=== PATIENT | female | born 1940 | race African-American/Black ===

== ENCOUNTER 2016-07-16 06:17 | Inpatient (IN) ==
[2016-07-14 10:19] LABS: Basophils % 0.7 % (0.0-0.8); Eosinophils # 0.3 10*3/uL (0.0-0.87); Eosinophils % 6.7 % (0.00-10.9); Hematocrit 30.8 VOL% (35.7-47.0); Hemoglobin 9.8 GM/DL (12.0-16.0); Immature Granulocytes % 0.2 %; Immature Granulocytes Absolute 0.01 #; Lymphocytes # 0.8 10*3/uL (1.4-4.0); Lymphocytes % 20.2 % (21.3-54.2); Mean Corpuscular HGB Conc 31.8 GM/DL (32-36); Mean Corpuscular Hemoglobin 29 PG (27-34); Mean Corpuscular Volume 90.1 FL (87-102); Mean Platelet Volume 11.4 FL (9.6-12.0); Monocytes # 0.2 10*3/uL (0.11-0.8); Monocytes % 5.4 % (1.7-12.7); Neutrophils # 2.7 10*3/uL (1.4-7.4); Neutrophils % 66.8 % (38.7-73.9); Platelet Count 157 T/CUMM (130-400); Red Blood Count 3.42 MC/CUMM (3.8-5.5); Red Cell Distribution Width 11.8 % (9.3-17.3); White Blood Count 4.1 T/CUMM (4-12)
[2016-07-14 10:29] LABS: PT Patient Result 10.9 SECS; Partial Thromboplastin Time 25.4 SECS (0-40)
[2016-07-14 10:47] LABS: Albumin 3.9 G/DL (3.4-5.0); Bilirubin,Total 0.4 MG/DL (0.2-1.0); Calcium 9.2 MG/DL (8.5-10.1); Total Protein 6.8 G/DL (6.4-8.3)
[2016-07-14 10:48] LABS: Osmolality,Calculated 301.1 MOS/KG (273-304); Potassium 3.7 MMOL/L (3.5-5.1)
--- NOTE | 2016-07-14 11:10 | EKG Report ---
Stationary ECG Study [facility] Test Date: 07/14/2016 11:08:16 AM Pat Name: GURWINDER DAVIS Department: Room: Gender: F Fish Salter: C[place] 07/16/16 BRANDI : 1940 Requested by: Peewee Dawkins Order Number: [id number] Lyndsay MD: CHRISTOPHER SHELTON Intervals [place] Rate: 59 P: 54 CO: 147 QRS: 42 QRSD: 102 T: 90 QT: 396 QTc: 395 Interpretive Statements SINUS RHYTHM WITH MARKED SINUS ARRHYTHMIA POSSIBLE ANTERIOR MYOCARDIAL INFARCTION, OF INDETERMINATE AGE Electronically Signed On 07-14-16 12:14:32 CDT by CHRISTOPHER SHELTON [email or web address]
--- NOTE | 2016-07-14 12:35 | XRay Report ---
XR chest 2V Indication: Preop respiratory evaluation. Chest 2 views: No comparison. Aorta is slightly tortuous. Heart size and mediastinal contours are otherwise unremarkable. Lungs are clear. Pleural spaces are clear. Impression: No acute cardiopulmonary disease. PROCEDURE INTERPRETED AT [facility] DEPARTMENT OF RADIOLOGY Final Report Signed by: Oscar Kincaid M.D.
[~2016-07-16 06:17] MED LIST: ceFAZolin 2,000 MG in PREMIX 1 EACH IV ONE
--- NOTE | 2016-07-16 06:36 | History and Physical Update ---
History and Physical Update - History and Physical H&P was reviewed, the patient examined and there: are no changes in the patients condition since last H&P was completed.
[2016-07-16] MEDS ORDERED: BUPIVACAINE MPF 0.25% /EPI 30 ML VIAL ONE (06:45)
[2016-07-16] MEDS ORDERED: LACTATED RINGERS 1,000 ML IV SCH (07:00)
[2016-07-16] MEDS ORDERED: PHENYLEPHRINE 1 MG/10 ML SYRINGE IV ONE (07:01)
[2016-07-16] MEDS ORDERED: LIDOCAINE 2% 5 ML VIAL ONE (07:01)
[2016-07-16] MEDS ORDERED: ONDANSETRON 4 MG/2 ML VIAL ONE (07:01)
[2016-07-16] MEDS ORDERED: PROPOFOL 200 MG/20 ML VIAL IV ONE (07:01)
[2016-07-16] MEDS ORDERED: ACETAMINOPHEN 325 MG TABLET PO PRN (10:03)
[2016-07-16] MEDS ORDERED: GLUCAGON 1 MG VIAL IM PRN (10:03)
[2016-07-16] MEDS ORDERED: DEXTROSE 50% 25 GM/50 ML VIAL IV PRN (10:03)
[2016-07-16] MEDS ORDERED: HYDROmorphone 2 MG/1 ML VIAL IV PRN ×2 (10:03→10:39)
[2016-07-16] MEDS ORDERED: SEVOFLURANE 1 UNIT/15 MINUTE INH ONE (10:27)
[2016-07-16] MEDS ORDERED: MIDAZOLAM 2 MG/2 ML VIAL ONE (10:28)
[2016-07-16] MEDS ORDERED: LACTATED RINGERS 1,000 ML IV ONE (10:28)
[2016-07-16] MEDS ORDERED: ACETAMINOPHEN 1,000 MG/100 ML VIAL IV ONE (10:30)
[2016-07-16] MEDS ORDERED: ONDANSETRON 4 MG/2 ML VIAL IV PRN (10:39)
[2016-07-16] MEDS: SODIUM CHLORIDE 0.9% 1,000 ML IV SCH ×2 (12:03→21:00)
--- NOTE | 2016-07-16 12:45 | Anesthesia ---
Anesthesia Post OP - Post Ansesthetic Evaluation Patient seen in post op: Yes Resp: within normal limits CV: within normal limits Mental: within normal limits Temp: within normal limits Mnck-Pm-[id number]: within normal limits Nausea and Vomiting: within normal limits Pain: within normal limits
[2016-07-16] MEDS: INSULIN REGULAR 100 UNIT/ML SUBCUT SCH ×3 (13:18→21:01)
[2016-07-16] MEDS: ceFAZolin 2,000 MG in PREMIX 1 EACH IV SCH ×2 (15:30→23:29)
[2016-07-16 16:32] LABS: Hemoglobin 9.1 GM/DL (12.0-16.0)
--- NOTE | 2016-07-16 17:53 | Event Note ---
07/16/2016. Patient is postop left mastectomy moderate HODA drainage and hematocrit is stable at 30. Vital signs are stable and she is alert at this time. Patient stable postop.
--- NOTE | 2016-07-16 18:01 | Operative Note ---
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 Postoperative diagnosis: Same Procedure: Left modified radical mastectomy with left axillary lymph node dissection. Surgeon Dr. Dawkins Wire Rope Sling Maker Judith Rees, SAMPLE CLERK ACNP Anesthesia General tracheal. Brief history: 76-year-old -[place] female who has cancer of the left breast triple negative by core needle biopsy. She also has a masses near the tail of the axilla that was biopsied and said his metastatic cancer to the lymph node. At this point Dr. elliott seen her and he would like for us to go ahead and see if we could do the surgery behind her since he was hoping to do a lesser amount of chemotherapy on the patient once the mass was removed. We discussed this with the family brought her in at this time for surgery. Procedure: With patient supine position prepped and draped in a sterile fashion timeout and antibiotics completed approaches area the left breast. At that point time we carefully bay out a elliptical incision about the areola in a transverse fashion that would also encompass the mass at the 2 o'clock position. We then made an incision through the skin subtenons tissue in the superior part of the breast dissected through the subtenons tissue and then begin to create a superior flap by going through Alena's fascia care and all the way up to the pectoralis major muscle at the level of the clavicle. We then carried this dissection a little bit medial to the sternal area. With that completed then we created our posterior flap going through skin subtenons tissue and dissected through Alena's fascia down to the level of the rectus sheath. We then went medial to create the medial margin of the breast kidney down along the sternal area edge. We then created a lateral flap going through the skin subtenons tissue and the Alena's fascia down to the level of the latissimus dorsi muscle. Once we had that flaps created then we took the breast off the chest wall by incising the fascial top of the muscle finding no tissue attached to the muscle at all. Everything was free and we were able to bring up breast up and out. We rolled the breast laterally until we can see the lateral edge of the pectoralis major muscle dissected along it until we can define the lateral edge of the pectoralis minor muscle. We carefully preserved blood supply to both these muscles dissected into the axilla. With careful dissection we identified the vein and begin take the breast tissue down inferior to the both vein at this time dividing any large vessels or branches. We identified the long thoracic and thoracodorsal nerves and begin dissected tissue between the toes nerves out carefully. Once we had the exit axilla pulled down we could see the second mass in this area that was probably at the very superior part of the breast tissue are at the very proximal part of the tail of the axilla. There were some smaller lymph nodes in the axilla we carefully dissected all these things free until we had the breast just it laterally. We went along the latissimus dorsi muscle taking the breast tissue off the chest wall. Once that was clear will use light cauterization control bleeding washed with sterile water. With a wound looking clear and clean we made 2 separate stab wounds laid 2 #[address] [place] drains in place we then used fibrin glue into the chest wall area that R drains in place. We next began to close subtenons tissue with interrupted 3-0 Vicryl suture to close the skin with skin clips secured the drain and 3-0 nylon. Dressings were applied and the patient taken to recovery room. Estimated blood loss 50 cc Sponge count correct 2 drains 2 #10 [place] Complications none Condition stable satisfactory Anesthesia: NOAH Surgeon / Physician: Peewee Dawkins Wire Rope Sling Maker: Judith Rees Estimated blood loss: other (60 cc) Specimens: other (Left breast and axilla) Condition: stable Disposition: floor Results - Labs CBC & BMP: 07/16/16 16:14 07/14/16 10:11 Discharge Plan - Discharge Medications No Action Isosorbide Mononitrate [Imdur] 30 mg PO DAILY glipiZIDE [Glipizide] 5 mg PO DAILY W/BREAKFAST Meloxicam 15 mg PO DAILY Atorvastatin [Lipitor] 40 mg PO DAILY Amlodipine Besylate 10 mg PO DAILY Allopurinol 100 mg PO DAILY Lisinopril/Hydrochlorothiazide [Lisinopril-Hctz 20-25 mg Tab] 2 each PO DAILY - Follow Up or Referral - Forms/Instructions
[2016-07-17 03:36] LABS: Basophils % 0.5 % (0.0-0.8); Eosinophils # 0.2 10*3/uL (0.0-0.87); Eosinophils % 2.5 % (0.00-10.9); Hematocrit 26.9 VOL% (35.7-47.0); Hemoglobin 8.6 GM/DL (12.0-16.0); Immature Granulocytes % 0.3 %; Immature Granulocytes Absolute 0.02 #; Lymphocytes # 1.3 10*3/uL (1.4-4.0); Lymphocytes % 19.3 % (21.3-54.2); Mean Corpuscular Hemoglobin 29 PG (27-34); Mean Corpuscular Volume 90.9 FL (87-102); Mean Platelet Volume 11.9 FL (9.6-12.0); Monocytes # 0.4 10*3/uL (0.11-0.8); Monocytes % 6.6 % (1.7-12.7); Neutrophils # 4.6 10*3/uL (1.4-7.4); Neutrophils % 70.8 % (38.7-73.9); Platelet Count 128 T/CUMM (130-400); Red Blood Count 2.96 MC/CUMM (3.8-5.5); Red Cell Distribution Width 11.9 % (9.3-17.3); White Blood Count 6.5 T/CUMM (4-12)
[2016-07-17 04:10] LABS: Calcium 8.3 MG/DL (8.5-10.1); Osmolality,Calculated 292.8 MOS/KG (273-304)
[2016-07-17] MEDS: SODIUM CHLORIDE 0.9% 1,000 ML IV SCH (07:21)
[2016-07-17] MEDS: ENOXAPARIN 40 MG/0.4 ML SYRINGE SUBCUT SCH (09:51)
[2016-07-17] MEDS: amLODIPine 10 MG TABLET PO SCH (09:52)
[2016-07-17] MEDS: ATORVASTATIN 40 MG TABLET PO SCH (09:52)
[2016-07-17] MEDS: MELOXICAM 7.5 MG TABLET PO SCH (09:52)
[2016-07-17] MEDS: LISINOPRIL/HCTZ 20-25 MG TABLET PO SCH (09:52)
[2016-07-17] MEDS: ALLOPURINOL 100 MG TABLET PO SCH (09:52)
[2016-07-17] MEDS: PANTOPRAZOLE 40 MG TABLET PO SCH (09:52)
[2016-07-17] MEDS: ISOSORBIDE MONONITRATE 30 MG TABLET PO SCH (09:53)
[2016-07-17] MEDS: glipiZIDE 5 MG TABLET PO SCH (09:53)
[2016-07-17] MEDS: ceFAZolin 2,000 MG in PREMIX 1 EACH IV SCH ×2 (09:53→20:33)
[2016-07-17] MEDS: INSULIN REGULAR 100 UNIT/ML SUBCUT SCH ×4 (09:54→20:38)
--- NOTE | 2016-07-17 11:59 | General Surgery Progress Note ---
Assessment and Plan - Time spent with patient Time spent with patient: Less than 30 minutes (1) Carcinoma of left breast metastatic to axillary lymph node Status: Acute Assessment and plan: 07/17/16 Stable post op left MRM with axillary dissection. We'll plan to have her increase activity today and arrange for Home Health to pick her up to help with wound care and drain management. If she's doing well she could be discharged home tomorrow. Current Visit: Yes Subjective Patient reports: Present: other (Patient complains of minimal post op pain ' mainly when I move my arm a lot.' ) Exam - Constitutional Vitals: Period Temp Pulse Resp BP Sys/Campbell Pulse Ox Last 24 Hr 97.2 F-98.9 F 70-83 16-20 134-161/54-77 93-100 General appearance: no acute distress, over weight, other (She is awake, alert, and cooperative; able to move left arm to command with greater than 90 degree active range of motion. ) - Respiratory Respiratory exam: Absent: rales, rhonchi, wheezes - Cardiovascular Cardiovascular exam: Present: RRR - Breasts Breasts: other (Left chest wall incision is clean and has no active bleeding present. JPs in place-serous output, minimal amount. No unusual swelling or bruising, no tenderness. ) Results - Labs CBC & BMP: 07/17/16 02:46 07/17/16 02:46 Lab Results: I have reviewed the past 24 hour labs (Labs stable.)
--- NOTE | 2016-07-17 12:09 | Discharge Summary ---
Hospital Course - Hospital Course Hospital Course: Discharge summary-This 76 year old lady was admitted on 07/16/16 for elective left modified radical mastectomy with axillary dissection after she was found to have a large left breast mass with biopsy proven metastatic disease to a left tail of Garcia lymph node. The pathology report was positive for triple negative tumor, and it was felt that she would best be served by MRM, with hopes for more direct chemotherapy once we had achieved surgical control. She was taken to the OR on July 16, 2016, where an uncomplicated left modified radical mastectomy was performed. The largest area of tumor was initially seen by pathology, with the possible second tumor also identified on gross evaluation but no further intraop studies were performed. Post op, she has done very well, with a little low hematocrit that has remained stable overnight and is now 26.8. She is not short of breath, is able to ambulate about the room with a walker, and is having very minimal post op pain. Her HODA drains have small serous output present but with such a large amount of redundant tissue and skin pocket, we do not want to risk seroma, so we will plan to leave both these in place. She is tolerating a regular diet and has good family support. We have worked with geriatric social work professor to establish Home Health to help manage her wound care and drains. We will plan for discharge home to the care of her family and Home health on July 18, 2016. She is to resume all her prior home medications and treatments, including wound care protocols, should continue as per current wound care orders for this hospital stay. We will also leave a prescription for [place], 5/325mg, #20, should she have a need for narcotic pain relief, and plan to see her again in our office in 7 to 10 days for consideration of drain removal. - Time spent with patient Time with patient DS: Less than 30 minutes Diagnosis - Discharge Diagnosis (1) Carcinoma of left breast metastatic to axillary lymph node Status: Acute Specialty Discharge - Follow Up or Referrals Follow up with: Peewee Dawkins MD [Physician] - (Call our office on Wednesday and schedule an appointment to see Dr Dawkins or Judith in 7 to 10 days) Discharge Plan - Discharge Data Disposition: Home Health Service Condition at Discharge: Stable Discharge Diet: diabetic diet Activity: increase activity as tolerated, other (Use left arm; postmastectomy exercises ) Hygiene: may shower Weight Bearing at Discharge: full weight bearing Driving: not until seen by doctor Contact your physician if you experience:: fever over 101, Redness or swelling, Nausea/Vomiting, Shortness of breath, Bleeding, pain uncontrolled by pain medications Wound / Dressing Care Instructions: Please copy current wound care orders from the patient's chart and send these to Home Health with the orders. Please have a copy also sent with the patient's discharge packet. - Discharge Medications New HYDROcodone/ACETAMIN 5-325 [Hanston 5-325] 1 tablet PO Q6H #20 tablet Continue Isosorbide Mononitrate [Imdur] 30 mg PO DAILY glipiZIDE [Glipizide] 5 mg PO DAILY W/BREAKFAST Meloxicam 15 mg PO DAILY Atorvastatin [Lipitor] 40 mg PO DAILY Amlodipine Besylate 10 mg PO DAILY Allopurinol 100 mg PO DAILY Lisinopril/Hydrochlorothiazide [Lisinopril-Hctz 20-25 mg Tab] 2 each PO DAILY - Follow Up or Referral - Forms/Instructions Exam - Constitutional Vitals: Period Temp Pulse Resp BP Sys/Campbell Pulse Ox Last 24 Hr 97.2 F-98.9 F 70-83 16-20 134-161/54-74 93-100 Discharge Results Labs on day of discharge: Labs from last 24 hours 07/17/16 07/17/16 07/17/16 11:29 07:44 02:46 WBC RBC Hgb Hct MCV MCH MCHC RDW Plt Count MPV Neut % (Auto) Lymph % (Auto) [place] % (Auto) Eos % (Auto) Baso % (Auto) Neut # (Auto) Lymph # (Auto) [place] # (Auto) Eos # (Auto) Baso # (Auto) Immature Gran % Nucleated RBC % Immature Gran # Nucleated RBCs # Sodium 144 Potassium 4.0 Chloride 109 H Carbon Dioxide 25 Anion Gap 14.0 BUN 30 H Creatinine 1.20 H GFR Calculation 58 BUN/Creatinine Ratio 25.00 H Glucose 125 H POC Glucose 167 H 136 H Calculated Osmolality 292.8 Calcium 8.3 L 07/17/16 07/16/16 07/16/16 02:46 19:44 16:14 WBC 6.5 D RBC 2.96 L Hgb 8.6 L 9.1 L Hct 26.9 L 29.0 L MCV 90.9 MCH 29 MCHC 32.0 RDW 11.9 Plt Count 128 L MPV 11.9 Neut % (Auto) 70.8 Lymph % (Auto) 19.3 L [place] % (Auto) 6.6 Eos % (Auto) 2.5 Baso % (Auto) 0.5 Neut # (Auto) 4.6 Lymph # (Auto) 1.3 L [place] # (Auto) 0.4 Eos # (Auto) 0.2 Baso # (Auto) 0.0 Immature Gran % 0.3 Nucleated RBC % 0.0 Immature Gran # 0.02 Nucleated RBCs # 0.00 Sodium Potassium Chloride Carbon Dioxide Anion Gap BUN Creatinine GFR Calculation BUN/Creatinine Ratio Glucose POC Glucose 197 H Calculated Osmolality Calcium 07/16/16 15:39 WBC RBC Hgb Hct MCV MCH MCHC RDW Plt Count MPV Neut % (Auto) Lymph % (Auto) [place] % (Auto) Eos % (Auto) Baso % (Auto) Neut # (Auto) Lymph # (Auto) [place] # (Auto) Eos # (Auto) Baso # (Auto) Immature Gran % Nucleated RBC % Immature Gran # Nucleated RBCs # Sodium Potassium Chloride Carbon Dioxide Anion Gap BUN Creatinine GFR Calculation BUN/Creatinine Ratio Glucose POC Glucose 230 H Calculated Osmolality Calcium DS: Provider Date of admission: 07/16/16 10:03 Primary care physician: Aileen Lombardo NP Attending physician on admission: Peewee Dawkins MD Consults: 07/16/16 10:11 Consult to Case Mgmt/Social Srvs [CONS] Routine Reason for Case Mgmt/Social Srvs: Discharge Planning Consult Comment: home health to help wound care and drains 07/16/16 11:58 Consult to Pastoral Services [CONS] Routine Comment: Pastoral Screen: Request Portable Grinding Machine Operator Visit Pastoral Screen Source of Request: Family 07/16/16 12:07 Consult to Pharmacy [CONS] Routine Reason for Pharmacy Consult: Adjust Meds Renal Funct Discharging clinician: Judith Rees CNP, R
[2016-07-17] MEDS: BISACODYL 5 MG TABLET PO PRN (20:37)
[2016-07-18] MEDS: SODIUM CHLORIDE 0.9% 1,000 ML IV SCH ×2 (05:22→05:31)
[2016-07-18] MEDS: BISACODYL 5 MG TABLET PO PRN (05:26)
[2016-07-18] MEDS: ceFAZolin 2,000 MG in PREMIX 1 EACH IV SCH ×2 (05:28→11:59)
[2016-07-18] MEDS: glipiZIDE 5 MG TABLET PO SCH (10:18)
[2016-07-18] MEDS: MELOXICAM 7.5 MG TABLET PO SCH (10:18)
[2016-07-18] MEDS: INSULIN REGULAR 100 UNIT/ML SUBCUT SCH ×2 (10:18→11:56)
[2016-07-18] MEDS: LISINOPRIL/HCTZ 20-25 MG TABLET PO SCH (10:19)
[2016-07-18] MEDS: ISOSORBIDE MONONITRATE 30 MG TABLET PO SCH (10:19)
[2016-07-18] MEDS: amLODIPine 10 MG TABLET PO SCH (10:19)
[2016-07-18] MEDS: ATORVASTATIN 40 MG TABLET PO SCH (10:20)
[2016-07-18] MEDS: PANTOPRAZOLE 40 MG TABLET PO SCH (10:20)
[2016-07-18] MEDS: ENOXAPARIN 40 MG/0.4 ML SYRINGE SUBCUT SCH (10:21)
--- NOTE | 2016-07-18 11:39 | Discharge Summary ---
Hospital Course - Hospital Course Hospital Course: Status post left mastectomy. Doing well. She set for discharge this morning. Incision looks good. HODA drain with minimal serous output. Will keep the HODA drain. She'll follow-up with Dr. Dawkins next week. Prescriptions of been written by Judith Rees Specialty Discharge - Follow Up or Referrals Follow up with: Peewee Dawkins MD [Physician] - (Call our office on Wednesday and schedule an appointment to see Dr Dawkins or Judith in 7 to 10 days) Discharge Plan - Discharge Data Disposition: Home Health Service - Discharge Medications New HYDROcodone/ACETAMIN 5-325 [[place]dermott 5-325] 1 tablet PO Q6H #20 tablet Continue Isosorbide Mononitrate [Imdur] 30 mg PO DAILY glipiZIDE [Glipizide] 5 mg PO DAILY W/BREAKFAST Meloxicam 15 mg PO DAILY Atorvastatin [Lipitor] 40 mg PO DAILY Amlodipine Besylate 10 mg PO DAILY Allopurinol 100 mg PO DAILY Lisinopril/Hydrochlorothiazide [Lisinopril-Hctz 20-25 mg Tab] 2 each PO DAILY - Follow Up or Referral Follow Up: Peewee Dawkins MD [Physician] - (Call our office on Wednesday and schedule an appointment to see Dr Dawkins or Judith in 7 to 10 days) - Forms/Instructions Exam - Constitutional Vitals: Period Temp Pulse Resp BP Sys/Campbell Pulse Ox Last 24 Hr 98.7 F-99.8 F 78-81 18-20 115-145/55-75 96-97 Discharge Results Labs on day of discharge: Labs from last 24 hours 07/17/16 07/17/16 20:35 15:08 POC Glucose 136 H 72 L DS: Provider Date of admission: 07/16/16 10:03 Primary care physician: Aileen Lombardo NP Attending physician on admission: Peewee Dawkins MD Consults: 07/16/16 10:11 Consult to Case Mgmt/Social Srvs [CONS] Routine Reason for Case Mgmt/Social Srvs: Discharge Planning Consult Comment: home health to help wound care and drains 07/16/16 11:58 Consult to Pastoral Services [CONS] Routine Comment: Pastoral Screen: Request Access Coordinator Visit Pastoral Screen Source of Request: Family 07/16/16 12:07 Consult to Pharmacy [CONS] Routine Reason for Pharmacy Consult: Adjust Meds Renal Funct Discharging clinician: Rickey Dobbins MD
[2016-07-18] MEDS: ALLOPURINOL 100 MG TABLET PO SCH (11:56)
[2016-07-18 17:15] VITALS: BP 154/76
--- NOTE | 2016-07-21 13:19 | Pathology Report from [facility] ---
ACCESSION # : [id number] PATIENT NAME : Gurwinder Davis ORDERING DR : KARLA PAZ MD CLINICAL HX: LT breast CA, LT axillary adenopathy POST-OP DX: Same SPECIMEN INFO: LT breast tissue GROSS DESCRIPTION: Received fresh labeled "GURWINDER DAVIS" is a left breast modified radical mastectomy measuring 25.5 x 15.0 x 5.0 cm with an overlying ellipse of brown skin measuring 20.0 x 8.0 cm. The specimen is received previously inked with the superior margin inked red, the inferior blue, the medial yellow, the lateral orange, and the deep black. Sectioning reveals a lobulated pink julian tumor mass measuring 3.2 x 3.0 cm which is situated at the 3: 00 position and comes to within 2.0 cm of the deep margin. Just adjacent to the primary mass is a julian nodule measuring 0.9 x 0.4 cm. A portion of axillary tissue is attached to the breast measuring 12.0 x 8.7 cm with lymph nodes submitted following fixation. Sections submitted A-Nipple and skin, B- Account Support Specialist deep margin, C&D-Primary mass, E-2nd smaller nodule, F&G-Lymph nodes. DIAGNOSIS FOR GURWINDER DAVIS: LEFT BREAST, MODIFIED RADICAL MASTECTOMY WITH AXILLARY NODES (Intact, 25.5 x 15.0 cm): TUMOR TYPE: Invasive ductal carcinoma. TUMOR SITE: LOQ TUMOR SIZE: 3.2 mm. CAREN GRADE III (tubules = 3, pleomorphism = 3, mitoses = 15 MF/ 10 HPF) TUMOR MARGINS: Margins uninvolved by carcinoma, with nearest (deep) margin = 20 mm. FOCALITY: Unifocal (adjacent small nodule is fibrous tissue only). DCIS: Absent. LYMPH- VASCULAR INVASION: Present. SKIN INVOLVEMENT: Absent. LYMPH NODES: Total lymph nodes present (non sentinel): 10; Total sentinel nodes: 0. Lymph nodes with macrometastases (>2 mm) =4 ; micrometastases (>0.2 mm to 2 mm) : 0; isolated tumor cells (<0.2 mm): 0. Extranodal extension: present. AJCC PATHOLOGIC STAGE IIIA(pT2pN2). SERVICE DATE: 07/16/2016 REPORT DATE: 07/17/2016 PATHOLOGIST: Taty Brink
== END 2016-07-18 15:10 | disposition home health service (06) | DRG 582 ==
LOC: N.OR 06:17 → N.SDSINP 06:18 → N.2E 10:03
PROVIDERS: ADMIT Specialist; ATTEND Specialist

== ENCOUNTER 2017-08-20 14:45 | Inpatient (IN) ==
[2017-08-20] MEDS ORDERED: ONDANSETRON 4 MG/2 ML VIAL IV STA (15:06)
[2017-08-20] MEDS ORDERED: SODIUM CHLORIDE 0.9% 500 ML IV STA (15:06)
[2017-08-20] MEDS ORDERED: PANTOPRAZOLE 40 MG VIAL IV STA (15:06)
[2017-08-20 16:06] LABS: Basophils % 0.1 % (0.0-0.8); Immature Granulocytes % 5.7 %; Lymphocytes # 0.5 10*3/uL (1.4-4.0); Lymphocytes % 7.2 % (21.3-54.2); Mean Corpuscular HGB Conc 31.3 GM/DL (32-36); Mean Corpuscular Hemoglobin 30 PG (27-34); Mean Corpuscular Volume 94.2 FL (87-102); Mean Platelet Volume 11.3 FL (9.6-12.0); Monocytes # 0.2 10*3/uL (0.11-0.8); Monocytes % 3.3 % (1.7-12.7); NRBC # 0.06 10*3/uL; Neutrophils # 5.8 10*3/uL (1.4-7.4); Neutrophils % 83.7 % (38.7-73.9); Platelet Count 121 T/CUMM (130-400); Red Cell Distribution Width 14.7 % (9.3-17.3)
[2017-08-20 16:10] LABS: Hematocrit 17.9 VOL% (35.7-47.0); Hemoglobin 5.6 GM/DL (12.0-16.0)
[2017-08-20 16:15] LABS: INR 1.1; PT Patient Result 11.6 SECS; Partial Thromboplastin Time < 21.0 SECS (0-40)
[2017-08-20 16:38] LABS: Band Neutrophils 3 % (0-10); Lymphocytes 10 % (20-55); Platelet Estimate Adequate; Segmented Neutrophils 84 % (50-85); Total Cells Counted 100
[2017-08-20 16:39] LABS: Albumin 2.7 G/DL (3.4-5.0); Bilirubin,Total 0.4 MG/DL (0.2-1.0); Calcium 8.1 MG/DL (8.5-10.1); Hypochromasia 1+; Macrocytosis Slight; Osmolality,Calculated 307.1 MOS/KG (273-304); Polychromasia Slight; Potassium 3.8 MMOL/L (3.5-5.1); Total Protein 5.2 G/DL (6.4-8.3)
[2017-08-20] MEDS ORDERED: ONDANSETRON 4 MG/2 ML VIAL IV PRN (17:31)
[2017-08-20] MEDS ORDERED: SODIUM CHLORIDE 0.9% 1,000 ML IV PRN (17:37)
[2017-08-20] MEDS ORDERED: hydrALAZINE 20 MG/1 ML VIAL IV PRN (19:27)
[2017-08-20] MEDS: SODIUM CHLORIDE 0.9% 1,000 ML IV SCH (19:59)
[2017-08-20] MEDS: LISINOPRIL/HCTZ 20-25 MG TABLET PO SCH (22:04)
[2017-08-20] MEDS: ATORVASTATIN 40 MG TABLET PO SCH (22:04)
[2017-08-20] MEDS: DEXAMETHASONE 4 MG TABLET PO SCH (22:04)
[2017-08-20] MEDS ORDERED: ACETAMINOPHEN 325 MG TABLET PO PRN (23:52)
[2017-08-21 06:39] LABS: Hemoglobin 7.5 GM/DL (12.0-16.0)
[2017-08-21 06:41] LABS: Basophils % 0.2 % (0.0-0.8); Hematocrit 22.8 VOL% (35.7-47.0); Hemoglobin 7.4 GM/DL (12.0-16.0); Immature Granulocytes % 5.7 %; Immature Granulocytes Absolute 0.35 #; Lymphocytes # 0.3 10*3/uL (1.4-4.0); Mean Corpuscular HGB Conc 32.5 GM/DL (32-36); Mean Corpuscular Hemoglobin 28 PG (27-34); Mean Corpuscular Volume 86.4 FL (87-102); Monocytes # 0.1 10*3/uL (0.11-0.8); Monocytes % 2.3 % (1.7-12.7); NRBC # 0.05 10*3/uL; Neutrophils # 5.4 10*3/uL (1.4-7.4); Neutrophils % 86.8 % (38.7-73.9); Platelet Count 107 T/CUMM (130-400); Red Blood Count 2.64 MC/CUMM (3.8-5.5); Red Cell Distribution Width 17.2 % (9.3-17.3); White Blood Count 6.2 T/CUMM (4-12)
[2017-08-21 07:04] LABS: Calcium 8.5 MG/DL (8.5-10.1); Osmolality,Calculated 309.8 MOS/KG (273-304); Potassium 4.3 MMOL/L (3.5-5.1)
[2017-08-21 07:41] LABS: Band Neutrophils 4 % (0-10); Hypochromasia 1+; Lymphocytes 3 % (20-55); Metamyelocytes 1 %; Microcytosis 1+; Nucleated Red Blood Cells 1 (0-5); Ovalocytes Slight; Polychromasia Slight; Segmented Neutrophils 90 % (50-85); Total Cells Counted 100
[2017-08-21 07:42] LABS: Platelet Estimate Decreased
[2017-08-21] MEDS ORDERED: glipiZIDE 5 MG TABLET PO SCH (08:00)
[2017-08-21] MEDS ORDERED: GLUCAGON 1 MG VIAL IM PRN (08:34)
[2017-08-21] MEDS ORDERED: DEXTROSE 50% 25 GM/50 ML VIAL IV PRN (08:34)
[2017-08-21] MEDS ORDERED: MELOXICAM 7.5 MG TABLET PO SCH (09:00)
[2017-08-21] MEDS: PANTOPRAZOLE 40 MG VIAL IV SCH (09:07)
[2017-08-21] MEDS: LISINOPRIL/HCTZ 20-25 MG TABLET PO SCH ×2 (09:10→20:50)
[2017-08-21] MEDS: ISOSORBIDE MONONITRATE 30 MG TABLET PO SCH (09:10)
[2017-08-21] MEDS: amLODIPine 10 MG TABLET PO SCH (09:10)
[2017-08-21] MEDS: ALLOPURINOL 100 MG TABLET PO SCH (09:10)
[2017-08-21] MEDS: SODIUM CHLORIDE 0.9% 1,000 ML IV SCH (16:53)
[2017-08-21] MEDS: glipiZIDE 5 MG TABLET PO SCH (16:53)
[2017-08-21 18:08] LABS: Hematocrit 28.8 VOL% (35.7-47.0); Hemoglobin 9.3 GM/DL (12.0-16.0)
[2017-08-21] MEDS: ATORVASTATIN 40 MG TABLET PO SCH (20:50)
[2017-08-21] MEDS: DEXAMETHASONE 4 MG TABLET PO SCH (20:51)
[2017-08-22 01:24] LABS: Basophils % 0.1 % (0.0-0.8); Eosinophils % 0.1 % (0.00-10.9); Hematocrit 28.9 VOL% (35.7-47.0); Hemoglobin 9.5 GM/DL (12.0-16.0); Immature Granulocytes % 4.5 %; Immature Granulocytes Absolute 0.37 #; Lymphocytes # 0.3 10*3/uL (1.4-4.0); Lymphocytes % 4.1 % (21.3-54.2); Mean Corpuscular HGB Conc 32.9 GM/DL (32-36); Mean Corpuscular Hemoglobin 28 PG (27-34); Mean Corpuscular Volume 85.5 FL (87-102); Monocytes # 0.3 10*3/uL (0.11-0.8); Monocytes % 3.5 % (1.7-12.7); NRBC # 0.08 10*3/uL; Neutrophils # 7.2 10*3/uL (1.4-7.4); Neutrophils % 87.7 % (38.7-73.9); Platelet Count 105 T/CUMM (130-400); Red Blood Count 3.38 MC/CUMM (3.8-5.5); Red Cell Distribution Width 18.4 % (9.3-17.3); White Blood Count 8.3 T/CUMM (4-12)
[2017-08-22 01:50] LABS: Calcium 8.6 MG/DL (8.5-10.1); Osmolality,Calculated 291.1 MOS/KG (273-304); Potassium 3.8 MMOL/L (3.5-5.1)
[2017-08-22 02:23] LABS: Band Neutrophils 23 % (0-10); Lymphocytes 3 % (20-55); Nucleated Red Blood Cells 1 (0-5); Segmented Neutrophils 69 % (50-85); Total Cells Counted 100
[2017-08-22 02:24] LABS: Anisocytosis 2+; Poikilocytosis 1+; Polychromasia 1+
[2017-08-22] MEDS: glipiZIDE 5 MG TABLET PO SCH (08:34)
[2017-08-22] MEDS: LISINOPRIL/HCTZ 20-25 MG TABLET PO SCH ×2 (08:34→21:16)
[2017-08-22] MEDS: amLODIPine 10 MG TABLET PO SCH (08:34)
[2017-08-22] MEDS: ALLOPURINOL 100 MG TABLET PO SCH (08:35)
[2017-08-22] MEDS: PANTOPRAZOLE 40 MG VIAL IV SCH (08:35)
[2017-08-22] MEDS: ISOSORBIDE MONONITRATE 30 MG TABLET PO SCH (08:36)
[2017-08-22] MEDS: SODIUM CHLORIDE 0.9% 1,000 ML IV SCH ×2 (08:37→21:16)
[2017-08-22] MEDS: cefTRIAXone 1,000 MG in SYRINGE 1 EACH IV SCH (11:25)
[2017-08-22 12:13] LABS: Hematocrit 30.1 VOL% (35.7-47.0); Hemoglobin 9.9 GM/DL (12.0-16.0)
[2017-08-22] MEDS ORDERED: glipiZIDE 5 MG TABLET PO SCH (16:30)
[2017-08-22 18:15] LABS: Hematocrit 28.2 VOL% (35.7-47.0); Hemoglobin 9.5 GM/DL (12.0-16.0)
[2017-08-22] MEDS: DEXAMETHASONE 4 MG TABLET PO SCH (21:16)
[2017-08-22] MEDS: ATORVASTATIN 40 MG TABLET PO SCH (21:16)
[2017-08-23 05:36] LABS: Basophils % 0.2 % (0.0-0.8); Hematocrit 27.8 VOL% (35.7-47.0); Hemoglobin 9.2 GM/DL (12.0-16.0); Immature Granulocytes % 2.6 %; Immature Granulocytes Absolute 0.16 #; Lymphocytes # 0.3 10*3/uL (1.4-4.0); Lymphocytes % 4.5 % (21.3-54.2); Mean Corpuscular HGB Conc 33.1 GM/DL (32-36); Mean Corpuscular Hemoglobin 28 PG (27-34); Mean Platelet Volume 11.8 FL (9.6-12.0); Monocytes # 0.1 10*3/uL (0.11-0.8); Monocytes % 1.8 % (1.7-12.7); Neutrophils # 5.7 10*3/uL (1.4-7.4); Neutrophils % 90.9 % (38.7-73.9); Platelet Count 101 T/CUMM (130-400); Red Blood Count 3.35 MC/CUMM (3.8-5.5); Red Cell Distribution Width 18.5 % (9.3-17.3); White Blood Count 6.2 T/CUMM (4-12)
[2017-08-23 06:03] LABS: Calcium 8.5 MG/DL (8.5-10.1)
[2017-08-23 06:30] LABS: Band Neutrophils 1 % (0-10); Hypochromasia 1+; Lymphocytes 2 % (20-55); Macrocytosis 1+; Platelet Estimate Decreased; Polychromasia Slight; Segmented Neutrophils 97 % (50-85); Total Cells Counted 100
[2017-08-23] MEDS ORDERED: BUPIVACAINE 0.5% /EPI 10 ML VIAL ONE (07:10)
[2017-08-23] MEDS ORDERED: BUPIVACAINE 0.5% 50 ML VIAL ONE (07:29)
[2017-08-23] MEDS ORDERED: glipiZIDE 5 MG TABLET PO SCH (07:30)
[2017-08-23] MEDS ORDERED: PROPOFOL 200 MG/20 ML VIAL IV ONE (08:27)
[2017-08-23] MEDS ORDERED: fentaNYL 100 MCG/2 ML VIAL ONE (08:28)
[2017-08-23] MEDS: cefTRIAXone 1,000 MG in SYRINGE 1 EACH IV SCH (11:14)
[2017-08-23] MEDS: LISINOPRIL/HCTZ 20-25 MG TABLET PO SCH ×2 (11:15→20:47)
[2017-08-23] MEDS: PANTOPRAZOLE 40 MG VIAL IV SCH (11:15)
[2017-08-23] MEDS: amLODIPine 10 MG TABLET PO SCH (11:15)
[2017-08-23] MEDS: ISOSORBIDE MONONITRATE 30 MG TABLET PO SCH (11:15)
[2017-08-23] MEDS: ALLOPURINOL 100 MG TABLET PO SCH (11:15)
[2017-08-23] MEDS: glipiZIDE 5 MG TABLET PO SCH (16:17)
[2017-08-23] MEDS: SODIUM CHLORIDE 0.9% 1,000 ML IV SCH (19:00)
[2017-08-23] MEDS: DEXAMETHASONE 4 MG TABLET PO SCH (20:47)
[2017-08-23] MEDS: ATORVASTATIN 40 MG TABLET PO SCH (20:47)
[2017-08-24] MEDS: SODIUM CHLORIDE 0.9% 1,000 ML IV SCH ×2 (03:21→18:43)
[2017-08-24 07:50] LABS: Basophils % 0.2 % (0.0-0.8); Hematocrit 27.6 VOL% (35.7-47.0); Hemoglobin 8.9 GM/DL (12.0-16.0); Immature Granulocytes % 1.5 %; Lymphocytes # 0.2 10*3/uL (1.4-4.0); Lymphocytes % 2.9 % (21.3-54.2); Mean Corpuscular HGB Conc 32.2 GM/DL (32-36); Mean Corpuscular Hemoglobin 27 PG (27-34); Mean Corpuscular Volume 84.1 FL (87-102); Mean Platelet Volume 11.3 FL (9.6-12.0); Monocytes # 0.1 10*3/uL (0.11-0.8); NRBC # 0.02 10*3/uL; Neutrophils # 6.1 10*3/uL (1.4-7.4); Neutrophils % 93.4 % (38.7-73.9); Platelet Count 100 T/CUMM (130-400); Red Blood Count 3.28 MC/CUMM (3.8-5.5); Red Cell Distribution Width 17.8 % (9.3-17.3); White Blood Count 6.5 T/CUMM (4-12)
[2017-08-24 08:33] LABS: Calcium 8.7 MG/DL (8.5-10.1); Osmolality,Calculated 284.5 MOS/KG (273-304)
[2017-08-24 09:17] LABS: Band Neutrophils 1 % (0-10); Lymphocytes 3 % (20-55); Segmented Neutrophils 92 % (50-85); Total Cells Counted 100
[2017-08-24 09:19] LABS: Microcytosis Slight
[2017-08-24 09:20] LABS: Polychromasia Slight
[2017-08-24 09:21] LABS: Hypochromasia 1+; Platelet Estimate Decreased
[2017-08-24] MEDS ORDERED: PROPOFOL 200 MG/20 ML VIAL IV ONE (10:58)
[2017-08-24] MEDS ORDERED: LIDOCAINE 1% 5 ML VIAL ONE (10:58)
[2017-08-24] MEDS: PANTOPRAZOLE 40 MG VIAL IV SCH (13:00)
[2017-08-24] MEDS: amLODIPine 10 MG TABLET PO SCH (13:00)
[2017-08-24] MEDS: cefTRIAXone 1,000 MG in SYRINGE 1 EACH IV SCH (13:00)
[2017-08-24] MEDS: glipiZIDE 5 MG TABLET PO SCH ×2 (13:01→18:40)
[2017-08-24] MEDS: ISOSORBIDE MONONITRATE 30 MG TABLET PO SCH (13:01)
[2017-08-24] MEDS: ALLOPURINOL 100 MG TABLET PO SCH (13:01)
[2017-08-24] MEDS: LISINOPRIL/HCTZ 20-25 MG TABLET PO SCH ×2 (13:01→21:04)
[2017-08-24] MEDS: ATORVASTATIN 40 MG TABLET PO SCH (21:04)
[2017-08-24] MEDS: DEXAMETHASONE 4 MG TABLET PO SCH (21:04)
[2017-08-25] MEDS: ALLOPURINOL 100 MG TABLET PO SCH (08:49)
[2017-08-25] MEDS: amLODIPine 10 MG TABLET PO SCH (08:49)
[2017-08-25] MEDS: LISINOPRIL/HCTZ 20-25 MG TABLET PO SCH (08:50)
[2017-08-25] MEDS: glipiZIDE 5 MG TABLET PO SCH (08:50)
[2017-08-25] MEDS: ISOSORBIDE MONONITRATE 30 MG TABLET PO SCH (08:51)
[2017-08-25] MEDS: PANTOPRAZOLE 40 MG VIAL IV SCH (08:52)
[2017-08-25] MEDS ORDERED: PANTOPRAZOLE 40 MG TABLET PO SCH (09:30)
[2017-08-25] MEDS: cefTRIAXone 1,000 MG in SYRINGE 1 EACH IV SCH (10:32)
[2017-08-25 12:22] VITALS: BP 128/52
== END 2017-08-25 16:10 | disposition home health service (06) | DRG 378 ==
LOC: EDUNIT# → EDBD → N.ED 14:45 → N.EDINP 18:11 → N.4E 18:57

== ENCOUNTER 2017-08-30 14:28 | Inpatient (IN) ==
[2017-08-30] MEDS ORDERED: ONDANSETRON 4 MG/2 ML VIAL IV STA (14:58)
[2017-08-30] MEDS ORDERED: ALBUTEROL/IPRATROPIUM 3 ML NEB RESP TX STA (14:58)
[2017-08-30 16:33] LABS: Allen Test Positive
[2017-08-30 16:34] LABS: ABG Base Excess 3.1 MMOL/L (-2.5-2.5); ABG HCO3 26.3 MMOL/L (20-26); ABG Oxygen Saturation 83.6 % (95-100); ABG PCO2 34.4 MM HG (35-48); ABG PH 7.501 (7.35-7.45); ABG PO2 49.9 MM HG (80-95); ABG TCO2 27.3 MMOL/L (23-27)
[2017-08-30 17:10] LABS: Basophils % 0.1 % (0.0-0.8); Eosinophils % 0.2 % (0.00-10.9); Hematocrit 27.8 VOL% (35.7-47.0); Hemoglobin 9.2 GM/DL (12.0-16.0); Immature Granulocytes % 3.2 %; Immature Granulocytes Absolute 0.34 #; Lymphocytes # 0.9 10*3/uL (1.4-4.0); Lymphocytes % 8.6 % (21.3-54.2); Mean Corpuscular HGB Conc 33.1 GM/DL (32-36); Mean Corpuscular Hemoglobin 28 PG (27-34); Mean Corpuscular Volume 84.2 FL (87-102); Mean Platelet Volume 11.3 FL (9.6-12.0); Monocytes # 0.5 10*3/uL (0.11-0.8); Monocytes % 4.7 % (1.7-12.7); NRBC # 0.03 10*3/uL; Neutrophils # 8.9 10*3/uL (1.4-7.4); Neutrophils % 83.2 % (38.7-73.9); Platelet Count 116 T/CUMM (130-400); Red Cell Distribution Width 18.8 % (9.3-17.3); White Blood Count 10.6 T/CUMM (4-12)
[2017-08-30 17:27] LABS: INR 1.1; PT Patient Result 11.6 SECS
[2017-08-30] MEDS ORDERED: PANTOPRAZOLE 40 MG VIAL IV STA (17:34)
[2017-08-30 17:44] LABS: Bilirubin,Total 0.6 MG/DL (0.2-1.0); Calcium 8.6 MG/DL (8.5-10.1); Osmolality,Calculated 286.1 MOS/KG (273-304); Potassium 3.6 MMOL/L (3.5-5.1); Total Protein 6.4 G/DL (6.4-8.3); Troponin I Only 0.043 NG/ML (0.00-0.045)
[2017-08-30] MEDS ORDERED: MAGNESIUM SULF RIDER 2 GM in PREMIX 1 EACH IV STA (17:46)
[2017-08-30] MEDS ORDERED: DEXTROSE 50% 25 GM/50 ML VIAL IV STA (17:46)
[2017-08-30] MEDS ORDERED: DEXTROSE 50% 25 GM/50 ML VIAL IV PRN (18:39)
[2017-08-30] MEDS ORDERED: DOCUSATE SODIUM 100 MG CAPSULE PO PRN (18:39)
[2017-08-30] MEDS ORDERED: guaiFENesin/DM ER 600-30 MG TABLET PO PRN (18:39)
[2017-08-30] MEDS ORDERED: MORPHINE 4 MG/1 ML VIAL IV PRN (18:39)
[2017-08-30] MEDS ORDERED: ONDANSETRON 4 MG/2 ML VIAL IV PRN (18:39)
[2017-08-30] MEDS ORDERED: GLUCAGON 1 MG VIAL IM PRN (18:39)
[2017-08-30] MEDS ORDERED: diphenhydrAMINE CAP 25 MG CAPSULE PO PRN (18:39)
[2017-08-30] MEDS ORDERED: ACETAMINOPHEN 325 MG TABLET PO PRN (18:39)
[2017-08-30] MEDS ORDERED: ALBUTEROL 2.5 MG/3 ML NEB RESP TX PRN (19:19)
[2017-08-30] MEDS: CIPROFLOXACIN 500 MG TABLET PO SCH (20:47)
[2017-08-30] MEDS: LISINOPRIL/HCTZ 20-25 MG TABLET PO SCH (20:47)
[2017-08-30] MEDS: DEXAMETHASONE 4 MG TABLET PO SCH (20:47)
[2017-08-30] MEDS: SODIUM CHLORIDE 0.9% 1,000 ML IV SCH (20:48)
[2017-08-30] MEDS: glipiZIDE 5 MG TABLET PO SCH (20:49)
[2017-08-30] MEDS: PANTOPRAZOLE 40 MG TABLET PO SCH (20:49)
[2017-08-30] MEDS: INSULIN LISPRO 100 UNIT/ML SUBCUT SCH (20:50)
[2017-08-30] MEDS ORDERED: ATORVASTATIN 40 MG TABLET PO SCH (21:00)
[2017-08-31 03:10] LABS: Apearance,Urine CLEAR (Clear); Bacteria,Urine Occasional /HPF (Few); Bilirubin,Urine Negative (Negative); Blood, Urine Small mg/dL (Negative); Glucose,Urine (UA) Negative (Negative); Ketones,Urine Negative (Negative); Mucus,Urine Occasional /LPF (Occasional); Nitrite,Urine Negative (Negative); Protein,Urine Negative; RBC,Urine 2 /HPF (0-4); Squamous Epithelial Cell,Urine Occasional /HPF (0-10); Urine Color Yellow (Yellow); Urine Specific Gravity 1.026 (1.001-1.035); Urine Urobilinogen < 2.0 EU/DL (0.2-1.0); WBC,Urine 4 /HPF (0-6)
[2017-08-31 06:15] LABS: Basophils % 0.1 % (0.0-0.8); Hemoglobin 7.9 GM/DL (12.0-16.0); Immature Granulocytes % 1.9 %; Immature Granulocytes Absolute 0.16 #; Lymphocytes # 0.5 10*3/uL (1.4-4.0); Lymphocytes % 5.2 % (21.3-54.2); Mean Corpuscular HGB Conc 31.6 GM/DL (32-36); Mean Corpuscular Hemoglobin 27 PG (27-34); Mean Corpuscular Volume 86.5 FL (87-102); Mean Platelet Volume 10.9 FL (9.6-12.0); Monocytes # 0.3 10*3/uL (0.11-0.8); NRBC # 0.03 10*3/uL; Neutrophils # 7.8 10*3/uL (1.4-7.4); Neutrophils % 89.8 % (38.7-73.9); Platelet Count 105 T/CUMM (130-400); Red Blood Count 2.89 MC/CUMM (3.8-5.5); Red Cell Distribution Width 18.6 % (9.3-17.3); White Blood Count 8.6 T/CUMM (4-12)
[2017-08-31 06:51] LABS: Calcium 8.6 MG/DL (8.5-10.1); Osmolality,Calculated 286.3 MOS/KG (273-304); Potassium 4.2 MMOL/L (3.5-5.1); Thyroid Stimulating Hormone 1.01 uIU/ml (0.358-3.74)
[2017-08-31] MEDS ORDERED: SODIUM CHLORIDE 0.9% 1,000 ML IV PRN (07:03)
[2017-08-31] MEDS ORDERED: ENOXAPARIN 80 MG/0.8 ML SYRINGE SUBCUT SCH (07:30)
[2017-08-31] MEDS ORDERED: ONDANSETRON 4 MG/2 ML VIAL ONE (08:25)
[2017-08-31] MEDS ORDERED: PANTOPRAZOLE 40 MG TABLET PO SCH (09:00)
[2017-08-31] MEDS ORDERED: ALLOPURINOL 100 MG TABLET PO SCH (09:00)
[2017-08-31] MEDS: INSULIN LISPRO 100 UNIT/ML SUBCUT SCH ×2 (09:08→17:15)
[2017-08-31] MEDS ORDERED: MAGNESIUM SULF RIDER 2 GM in PREMIX 1 EACH IV ONE (09:15)
[2017-08-31] MEDS: glipiZIDE 5 MG TABLET PO SCH ×2 (09:18→17:15)
[2017-08-31] MEDS: SODIUM CHLORIDE 0.9% 1,000 ML IV SCH (11:07)
[2017-08-31] MEDS: LISINOPRIL/HCTZ 20-25 MG TABLET PO SCH ×2 (11:26→21:56)
[2017-08-31] MEDS: amLODIPine 10 MG TABLET PO SCH (11:26)
[2017-08-31] MEDS: PANTOPRAZOLE 40 MG TABLET PO SCH ×2 (11:27→21:57)
[2017-08-31] MEDS: CIPROFLOXACIN 500 MG TABLET PO SCH ×2 (11:27→21:57)
[2017-08-31] MEDS: ISOSORBIDE MONONITRATE 30 MG TABLET PO SCH (11:27)
[2017-08-31] MEDS: SODIUM HYPOCHLORITE 0.25% IRRIG 473 ML BOTTLE TOP SCH (15:49)
[2017-08-31 17:30] LABS: Hematocrit 31.3 VOL% (35.7-47.0); Hemoglobin 10.3 GM/DL (12.0-16.0)
[2017-08-31] MEDS: DEXAMETHASONE 4 MG TABLET PO SCH (21:56)
[2017-09-01] MEDS: SODIUM CHLORIDE 0.9% 1,000 ML IV SCH ×2 (01:43→14:46)
[2017-09-01 03:06] LABS: Basophils % 0.1 % (0.0-0.8); Eosinophils % 0.3 % (0.00-10.9); Hematocrit 30.9 VOL% (35.7-47.0); Hemoglobin 10.2 GM/DL (12.0-16.0); Immature Granulocytes % 2.9 %; Immature Granulocytes Absolute 0.29 #; Lymphocytes # 0.4 10*3/uL (1.4-4.0); Lymphocytes % 4.4 % (21.3-54.2); Mean Corpuscular Hemoglobin 28 PG (27-34); Mean Corpuscular Volume 85.8 FL (87-102); Mean Platelet Volume 11.1 FL (9.6-12.0); Monocytes # 0.4 10*3/uL (0.11-0.8); Monocytes % 3.6 % (1.7-12.7); Neutrophils # 8.7 10*3/uL (1.4-7.4); Neutrophils % 88.7 % (38.7-73.9); Platelet Count 103 T/CUMM (130-400); Red Cell Distribution Width 16.5 % (9.3-17.3); White Blood Count 9.9 T/CUMM (4-12)
[2017-09-01 03:45] LABS: Albumin 2.6 G/DL (3.4-5.0); Bilirubin,Total 1.3 MG/DL (0.2-1.0); Calcium 8.6 MG/DL (8.5-10.1); Osmolality,Calculated 283.5 MOS/KG (273-304); Potassium 4.3 MMOL/L (3.5-5.1); Total Protein 5.5 G/DL (6.4-8.3)
[2017-09-01 03:53] LABS: Band Neutrophils 1 % (0-10); Lymphocytes 4 % (20-55); Platelet Estimate Decreased; Segmented Neutrophils 91 % (50-85); Total Cells Counted 100
[2017-09-01] MEDS: glipiZIDE 5 MG TABLET PO SCH ×2 (07:53→17:07)
[2017-09-01] MEDS: CIPROFLOXACIN 500 MG TABLET PO SCH (08:47)
[2017-09-01] MEDS: amLODIPine 10 MG TABLET PO SCH (08:47)
[2017-09-01] MEDS: ISOSORBIDE MONONITRATE 30 MG TABLET PO SCH (08:47)
[2017-09-01] MEDS: LISINOPRIL/HCTZ 20-25 MG TABLET PO SCH ×2 (08:47→21:47)
[2017-09-01] MEDS: PANTOPRAZOLE 40 MG TABLET PO SCH ×2 (08:48→21:47)
[2017-09-01] MEDS: INSULIN LISPRO 100 UNIT/ML SUBCUT SCH ×2 (09:42→17:07)
[2017-09-01] MEDS ORDERED: BISACODYL 5 MG TABLET PO ONE (12:00)
[2017-09-01] MEDS ORDERED: MAGNESIUM SULF RIDER 1 GM in PREMIX 1 EACH IV ONE (14:00)
[2017-09-01] MEDS ORDERED: POLYETHYLENE GLYCOL POWDER 255 GM BOTTLE PO ONE (14:00)
[2017-09-01] MEDS: SODIUM HYPOCHLORITE 0.25% IRRIG 473 ML BOTTLE TOP SCH (15:47)
[2017-09-01] MEDS ORDERED: MAGNESIUM CITRATE 300 ML BOTTLE PO ONE (21:00)
[2017-09-01] MEDS: DEXAMETHASONE 4 MG TABLET PO SCH (21:47)
[2017-09-02] MEDS: SODIUM CHLORIDE 0.9% 1,000 ML IV SCH ×2 (04:39→22:03)
[2017-09-02 05:34] LABS: Basophils % 0.1 % (0.0-0.8); Hematocrit 30.9 VOL% (35.7-47.0); Hemoglobin 10.6 GM/DL (12.0-16.0); Immature Granulocytes % 1.7 %; Immature Granulocytes Absolute 0.16 #; Lymphocytes # 0.4 10*3/uL (1.4-4.0); Lymphocytes % 4.4 % (21.3-54.2); Mean Corpuscular HGB Conc 34.3 GM/DL (32-36); Mean Corpuscular Hemoglobin 28 PG (27-34); Mean Corpuscular Volume 82.6 FL (87-102); Mean Platelet Volume 10.7 FL (9.6-12.0); Monocytes # 0.3 10*3/uL (0.11-0.8); Monocytes % 3.6 % (1.7-12.7); Neutrophils # 8.3 10*3/uL (1.4-7.4); Neutrophils % 90.2 % (38.7-73.9); Platelet Count 106 T/CUMM (130-400); Red Blood Count 3.74 MC/CUMM (3.8-5.5); Red Cell Distribution Width 16.4 % (9.3-17.3); White Blood Count 9.2 T/CUMM (4-12)
[2017-09-02 05:57] LABS: Hypochromasia 1+; Microcytosis Slight; Ovalocytes Slight; Platelet Estimate Decreased
[2017-09-02 05:59] LABS: Calcium 8.7 MG/DL (8.5-10.1); Osmolality,Calculated 283.7 MOS/KG (273-304); Potassium 4.1 MMOL/L (3.5-5.1)
[2017-09-02] MEDS: LISINOPRIL/HCTZ 20-25 MG TABLET PO SCH ×2 (08:56→22:02)
[2017-09-02] MEDS: glipiZIDE 5 MG TABLET PO SCH ×2 (08:56→16:30)
[2017-09-02] MEDS: PANTOPRAZOLE 40 MG TABLET PO SCH ×2 (08:56→22:02)
[2017-09-02] MEDS: amLODIPine 10 MG TABLET PO SCH (08:57)
[2017-09-02] MEDS: ISOSORBIDE MONONITRATE 30 MG TABLET PO SCH (08:57)
[2017-09-02] MEDS: INSULIN LISPRO 100 UNIT/ML SUBCUT SCH ×2 (08:57→18:08)
[2017-09-02] MEDS: SODIUM HYPOCHLORITE 0.25% IRRIG 473 ML BOTTLE TOP SCH (09:00)
[2017-09-02] MEDS ORDERED: POLYETHYLENE GLYCOL POWDER 255 GM BOTTLE PO ONE (11:00)
[2017-09-02] MEDS ORDERED: MAGNESIUM SULF RIDER 2 GM in PREMIX 1 EACH IV ONE (15:45)
[2017-09-02] MEDS: DEXAMETHASONE 4 MG TABLET PO SCH (22:01)
[2017-09-03 04:42] LABS: Basophils % 0.1 % (0.0-0.8); Eosinophils % 0.1 % (0.00-10.9); Hematocrit 31.1 VOL% (35.7-47.0); Hemoglobin 10.5 GM/DL (12.0-16.0); Immature Granulocytes % 1.6 %; Immature Granulocytes Absolute 0.14 #; Lymphocytes # 0.4 10*3/uL (1.4-4.0); Lymphocytes % 4.2 % (21.3-54.2); Mean Corpuscular HGB Conc 33.8 GM/DL (32-36); Mean Corpuscular Hemoglobin 28 PG (27-34); Mean Corpuscular Volume 83.2 FL (87-102); Mean Platelet Volume 10.2 FL (9.6-12.0); Monocytes # 0.3 10*3/uL (0.11-0.8); Monocytes % 2.8 % (1.7-12.7); Neutrophils # 8.1 10*3/uL (1.4-7.4); Neutrophils % 91.2 % (38.7-73.9); Platelet Count 119 T/CUMM (130-400); Red Blood Count 3.74 MC/CUMM (3.8-5.5); Red Cell Distribution Width 16.4 % (9.3-17.3); White Blood Count 8.9 T/CUMM (4-12)
[2017-09-03 05:19] LABS: Calcium 8.7 MG/DL (8.5-10.1); Osmolality,Calculated 279.4 MOS/KG (273-304); Potassium 3.7 MMOL/L (3.5-5.1)
[2017-09-03 05:27] LABS: Band Neutrophils 3 % (0-10); Lymphocytes 2 % (20-55); Microcytosis 1+; Nucleated Red Blood Cells 1 (0-5); Ovalocytes Slight; Segmented Neutrophils 94 % (50-85); Total Cells Counted 100
[2017-09-03 05:28] LABS: Hypochromasia 1+; Platelet Estimate Decreased
[2017-09-03] MEDS: SODIUM CHLORIDE 0.9% 1,000 ML IV SCH ×3 (07:16→22:35)
[2017-09-03] MEDS: SODIUM HYPOCHLORITE 0.25% IRRIG 473 ML BOTTLE TOP SCH (08:00)
[2017-09-03] MEDS: INSULIN LISPRO 100 UNIT/ML SUBCUT SCH ×2 (08:17→16:07)
[2017-09-03] MEDS: glipiZIDE 5 MG TABLET PO SCH ×2 (09:27→17:05)
[2017-09-03] MEDS ORDERED: LIDOCAINE 1% 5 ML VIAL ONE (15:04)
[2017-09-03] MEDS ORDERED: PROPOFOL 200 MG/20 ML VIAL IV ONE (15:04)
[2017-09-03] MEDS: PANTOPRAZOLE 40 MG TABLET PO SCH ×2 (15:13→21:08)
[2017-09-03] MEDS: LISINOPRIL/HCTZ 20-25 MG TABLET PO SCH ×2 (15:13→21:08)
[2017-09-03] MEDS: ISOSORBIDE MONONITRATE 30 MG TABLET PO SCH (15:13)
[2017-09-03] MEDS: amLODIPine 10 MG TABLET PO SCH (15:13)
[2017-09-03] MEDS: DEXAMETHASONE 4 MG TABLET PO SCH (21:08)
[2017-09-04 05:57] LABS: Basophils % 0.1 % (0.0-0.8); Hemoglobin 10.2 GM/DL (12.0-16.0); Immature Granulocytes % 1.8 %; Immature Granulocytes Absolute 0.13 #; Lymphocytes # 0.4 10*3/uL (1.4-4.0); Lymphocytes % 4.9 % (21.3-54.2); Mean Corpuscular HGB Conc 32.9 GM/DL (32-36); Mean Corpuscular Hemoglobin 28 PG (27-34); Mean Corpuscular Volume 83.8 FL (87-102); Monocytes # 0.3 10*3/uL (0.11-0.8); Monocytes % 3.4 % (1.7-12.7); Neutrophils # 6.6 10*3/uL (1.4-7.4); Neutrophils % 89.8 % (38.7-73.9); Platelet Count 118 T/CUMM (130-400); Red Cell Distribution Width 16.5 % (9.3-17.3); White Blood Count 7.4 T/CUMM (4-12)
[2017-09-04 06:24] LABS: Calcium 8.7 MG/DL (8.5-10.1); Osmolality,Calculated 281.7 MOS/KG (273-304); Potassium 3.6 MMOL/L (3.5-5.1)
[2017-09-04 06:25] LABS: Hypochromasia 1+; Lymphocytes 3 % (20-55); Microcytosis Slight; Ovalocytes Slight; Platelet Estimate Decreased; Segmented Neutrophils 94 % (50-85); Total Cells Counted 100
[2017-09-04] MEDS: glipiZIDE 5 MG TABLET PO SCH ×2 (08:53→18:31)
[2017-09-04] MEDS: LISINOPRIL/HCTZ 20-25 MG TABLET PO SCH ×2 (08:53→20:33)
[2017-09-04] MEDS: ISOSORBIDE MONONITRATE 30 MG TABLET PO SCH (08:53)
[2017-09-04] MEDS: PANTOPRAZOLE 40 MG TABLET PO SCH ×2 (08:54→20:33)
[2017-09-04] MEDS: INSULIN LISPRO 100 UNIT/ML SUBCUT SCH ×2 (08:54→18:32)
[2017-09-04] MEDS: amLODIPine 10 MG TABLET PO SCH (08:54)
[2017-09-04] MEDS ORDERED: MAGNESIUM SULF RIDER 2 GM in PREMIX 1 EACH IV ONE (09:31)
[2017-09-04] MEDS: SODIUM HYPOCHLORITE 0.25% IRRIG 473 ML BOTTLE TOP SCH (11:23)
[2017-09-04] MEDS: DEXAMETHASONE 4 MG TABLET PO SCH (20:32)
[2017-09-04] MEDS: APIXABAN 2.5 MG TABLET PO SCH (20:33)
[2017-09-05 05:12] LABS: Basophils % 0.1 % (0.0-0.8); Eosinophils % 0.4 % (0.00-10.9); Hematocrit 30.1 VOL% (35.7-47.0); Hemoglobin 10.2 GM/DL (12.0-16.0); Immature Granulocytes Absolute 0.14 #; Lymphocytes # 0.4 10*3/uL (1.4-4.0); Lymphocytes % 5.9 % (21.3-54.2); Mean Corpuscular HGB Conc 33.9 GM/DL (32-36); Mean Corpuscular Hemoglobin 29 PG (27-34); Mean Corpuscular Volume 84.3 FL (87-102); Mean Platelet Volume 11.1 FL (9.6-12.0); Monocytes # 0.3 10*3/uL (0.11-0.8); Monocytes % 3.7 % (1.7-12.7); Neutrophils # 6.2 10*3/uL (1.4-7.4); Neutrophils % 87.9 % (38.7-73.9); Platelet Count 124 T/CUMM (130-400); Red Blood Count 3.57 MC/CUMM (3.8-5.5); Red Cell Distribution Width 16.3 % (9.3-17.3); White Blood Count 7.1 T/CUMM (4-12)
[2017-09-05 05:33] LABS: Calcium 8.7 MG/DL (8.5-10.1); Osmolality,Calculated 288.4 MOS/KG (273-304); Potassium 3.9 MMOL/L (3.5-5.1)
[2017-09-05] MEDS: APIXABAN 2.5 MG TABLET PO SCH ×2 (09:31→21:09)
[2017-09-05] MEDS: ISOSORBIDE MONONITRATE 30 MG TABLET PO SCH (09:31)
[2017-09-05] MEDS: PANTOPRAZOLE 40 MG TABLET PO SCH ×2 (09:31→21:09)
[2017-09-05] MEDS: LISINOPRIL/HCTZ 20-25 MG TABLET PO SCH ×2 (09:31→21:09)
[2017-09-05] MEDS: glipiZIDE 5 MG TABLET PO SCH ×2 (09:31→17:20)
[2017-09-05] MEDS: amLODIPine 10 MG TABLET PO SCH (09:32)
[2017-09-05] MEDS: INSULIN LISPRO 100 UNIT/ML SUBCUT SCH ×2 (09:32→17:20)
[2017-09-05] MEDS: SODIUM HYPOCHLORITE 0.25% IRRIG 473 ML BOTTLE TOP SCH (09:32)
[2017-09-05] MEDS: DEXAMETHASONE 4 MG TABLET PO SCH (21:08)
[2017-09-06 05:45] LABS: Basophils % 0.1 % (0.0-0.8); Eosinophils % 0.3 % (0.00-10.9); Hematocrit 30.4 VOL% (35.7-47.0); Hemoglobin 9.7 GM/DL (12.0-16.0); Immature Granulocytes % 2.2 %; Immature Granulocytes Absolute 0.16 #; Lymphocytes # 0.5 10*3/uL (1.4-4.0); Lymphocytes % 6.5 % (21.3-54.2); Mean Corpuscular HGB Conc 31.9 GM/DL (32-36); Mean Corpuscular Hemoglobin 27 PG (27-34); Mean Corpuscular Volume 85.4 FL (87-102); Mean Platelet Volume 10.8 FL (9.6-12.0); Monocytes # 0.2 10*3/uL (0.11-0.8); Monocytes % 2.8 % (1.7-12.7); Neutrophils # 6.5 10*3/uL (1.4-7.4); Neutrophils % 88.1 % (38.7-73.9); Platelet Count 141 T/CUMM (130-400); Red Blood Count 3.56 MC/CUMM (3.8-5.5); Red Cell Distribution Width 16.3 % (9.3-17.3); White Blood Count 7.4 T/CUMM (4-12)
[2017-09-06 06:34] LABS: Osmolality,Calculated 281.4 MOS/KG (273-304); Potassium 3.9 MMOL/L (3.5-5.1)
[2017-09-06] MEDS: ISOSORBIDE MONONITRATE 30 MG TABLET PO SCH (08:31)
[2017-09-06] MEDS: INSULIN LISPRO 100 UNIT/ML SUBCUT SCH (08:31)
[2017-09-06] MEDS: PANTOPRAZOLE 40 MG TABLET PO SCH (08:31)
[2017-09-06] MEDS: APIXABAN 2.5 MG TABLET PO SCH (08:31)
[2017-09-06] MEDS: glipiZIDE 5 MG TABLET PO SCH ×2 (08:31→16:50)
[2017-09-06] MEDS: LISINOPRIL/HCTZ 20-25 MG TABLET PO SCH (08:31)
[2017-09-06] MEDS: amLODIPine 10 MG TABLET PO SCH (08:31)
[2017-09-06] MEDS: SODIUM HYPOCHLORITE 0.25% IRRIG 473 ML BOTTLE TOP SCH (14:16)
[2017-09-06 17:21] VITALS: BP 131/85
== END 2017-09-06 17:37 | disposition home health service (06) | DRG 166 ==
LOC: N.ED 14:28 → N.EDINP 17:41 → SUATTDRO 17:41 → N.ICU 20:25 → N.4E 09-03 17:58
PROVIDERS: ATTEND Internal Medicine
PROC: COLONBX (2017-09-03 09:35)

== ENCOUNTER 2017-10-22 18:37 | Observation (INO) ==
[2017-10-22 19:46] LABS: Basophils % 0.1 % (0.0-0.8); Hemoglobin 8.3 GM/DL (12.0-16.0); Immature Granulocytes % 2.2 %; Immature Granulocytes Absolute 0.27 #; Lymphocytes # 0.2 10*3/uL (1.4-4.0); Lymphocytes % 1.4 % (21.3-54.2); Mean Corpuscular HGB Conc 33.2 GM/DL (32-36); Mean Corpuscular Hemoglobin 29 PG (27-34); Mean Corpuscular Volume 86.5 FL (87-102); Mean Platelet Volume 11.3 FL (9.6-12.0); Monocytes # 0.1 10*3/uL (0.11-0.8); Monocytes % 1.2 % (1.7-12.7); NRBC # 0.06 10*3/uL; Neutrophils # 11.4 10*3/uL (1.4-7.4); Neutrophils % 95.1 % (38.7-73.9); Platelet Count 89 T/CUMM (130-400); Red Blood Count 2.89 MC/CUMM (3.8-5.5); Red Cell Distribution Width 19.1 % (9.3-17.3)
[2017-10-22 20:09] LABS: Albumin 2.7 G/DL (3.4-5.0); Bilirubin,Total 0.5 MG/DL (0.2-1.0); Calcium 8.8 MG/DL (8.5-10.1); Osmolality,Calculated 296.2 MOS/KG (273-304); Potassium 3.9 MMOL/L (3.5-5.1); Total Protein 5.8 G/DL (6.4-8.3)
[2017-10-22 20:10] LABS: Troponin I Only 0.155 NG/ML (0.00-0.045)
[2017-10-22 20:18] LABS: Band Neutrophils 3 % (0-10); Lymphocytes 3 % (20-55); Nucleated Red Blood Cells 1 (0-5); Platelet Estimate Decreased; Polychromasia Slight; Segmented Neutrophils 92 % (50-85); Total Cells Counted 100
[2017-10-22 20:27] LABS: Apearance,Urine CLEAR (Clear); Bacteria,Urine Occasional /HPF (Few); Bilirubin,Urine Negative (Negative); Blood, Urine Negative (Negative); Glucose,Urine (UA) 50 mg/dL (Negative); Hyaline Casts,Urine 6 /LPF (0-3); Ketones,Urine Negative (Negative); Mucus,Urine Occasional /LPF (Occasional); Nitrite,Urine Negative (Negative); Protein,Urine Negative; RBC,Urine 1 /HPF (0-4); Urine Color Yellow (Yellow); Urine Specific Gravity 1.011 (1.001-1.035); Urine Urobilinogen < 2.0 EU/DL (0.2-1.0); WBC,Urine 1 /HPF (0-6)
[2017-10-22] MEDS ORDERED: SODIUM CHLORIDE 0.9% 1,000 ML IV STA (20:40)
[2017-10-22] MEDS ORDERED: DOCUSATE SODIUM 100 MG CAPSULE PO PRN (22:20)
[2017-10-22] MEDS ORDERED: SODIUM CHLORIDE 0.9% 1,000 ML IV SCH (22:20)
[2017-10-22] MEDS ORDERED: ONDANSETRON 4 MG/2 ML VIAL IV PRN (22:20)
[2017-10-22] MEDS: ATORVASTATIN 40 MG TABLET PO SCH (22:54)
[2017-10-22] MEDS: DEXAMETHASONE 4 MG TABLET PO SCH (22:57)
[2017-10-23] MEDS ORDERED: GLUCAGON 1 MG VIAL IM PRN (02:32)
[2017-10-23] MEDS ORDERED: DEXTROSE 50% 25 GM/50 ML VIAL IV PRN (02:32)
[2017-10-23 03:43] LABS: Basophils % 0.1 % (0.0-0.8); Hematocrit 24.1 VOL% (35.7-47.0); Hemoglobin 7.8 GM/DL (12.0-16.0); Immature Granulocytes % 2.6 %; Immature Granulocytes Absolute 0.26 #; Lymphocytes # 0.2 10*3/uL (1.4-4.0); Lymphocytes % 1.7 % (21.3-54.2); Mean Corpuscular HGB Conc 32.4 GM/DL (32-36); Mean Corpuscular Hemoglobin 28 PG (27-34); Mean Corpuscular Volume 86.4 FL (87-102); Mean Platelet Volume 12.7 FL (9.6-12.0); Monocytes # 0.2 10*3/uL (0.11-0.8); Monocytes % 2.2 % (1.7-12.7); NRBC # 0.03 10*3/uL; Neutrophils # 9.4 10*3/uL (1.4-7.4); Neutrophils % 93.4 % (38.7-73.9); Platelet Count 84 T/CUMM (130-400); Red Blood Count 2.79 MC/CUMM (3.8-5.5); White Blood Count 10.1 T/CUMM (4-12)
[2017-10-23 04:11] LABS: Calcium 8.5 MG/DL (8.5-10.1); Osmolality,Calculated 299.7 MOS/KG (273-304); Potassium 3.6 MMOL/L (3.5-5.1)
[2017-10-23] MEDS: ALLOPURINOL 100 MG TABLET PO SCH (09:20)
[2017-10-23] MEDS: ISOSORBIDE MONONITRATE 30 MG TABLET PO SCH (09:20)
[2017-10-23] MEDS: INSULIN LISPRO 100 UNIT/ML SUBCUT SCH ×4 (09:20→20:48)
[2017-10-23] MEDS: CYPROHEPTADINE 4 MG TABLET PO SCH ×2 (09:20→20:40)
[2017-10-23] MEDS: PANTOPRAZOLE 40 MG TABLET PO SCH (09:20)
[2017-10-23] MEDS ORDERED: SODIUM CHLORIDE 0.9% 1,000 ML IV PRN (09:54)
[2017-10-23] MEDS: ATORVASTATIN 40 MG TABLET PO SCH (20:41)
[2017-10-23] MEDS: DEXAMETHASONE 4 MG TABLET PO SCH (20:41)
[2017-10-23 21:35] LABS: Hematocrit 30.9 VOL% (35.7-47.0); Hemoglobin 10.6 GM/DL (12.0-16.0)
[2017-10-24] MEDS: INSULIN LISPRO 100 UNIT/ML SUBCUT SCH (08:16)
[2017-10-24] MEDS: CYPROHEPTADINE 4 MG TABLET PO SCH (09:15)
[2017-10-24] MEDS: ISOSORBIDE MONONITRATE 30 MG TABLET PO SCH (09:15)
[2017-10-24] MEDS: PANTOPRAZOLE 40 MG TABLET PO SCH (09:15)
[2017-10-24] MEDS: ALLOPURINOL 100 MG TABLET PO SCH (09:15)
[2017-10-24 10:31] VITALS: BP 117/71
== END 2017-10-24 10:30 | disposition home or self-care (01) ==
LOC: EDUNIT# → N.ED 18:37 → N.EDINP 18:37 → N.4E 22:17
PROVIDERS: ADMIT Internal Medicine Nephrology; ATTEND Internal Medicine Nephrology

== ENCOUNTER 2017-11-02 17:39 | Inpatient (IN) ==
[2017-11-02] MEDS ORDERED: SODIUM CHLORIDE 0.9% 1,000 ML IV STA ×2 (18:19→20:35)
[2017-11-02 19:25] LABS: Basophils % 0.1 % (0.0-0.8); Hematocrit 32.3 VOL% (35.7-47.0); Hemoglobin 10.9 GM/DL (12.0-16.0); Immature Granulocytes % 4.5 %; Immature Granulocytes Absolute 0.32 #; Lymphocytes # 0.2 10*3/uL (1.4-4.0); Lymphocytes % 2.8 % (21.3-54.2); Mean Corpuscular HGB Conc 33.7 GM/DL (32-36); Mean Corpuscular Hemoglobin 29 PG (27-34); Mean Corpuscular Volume 85.4 FL (87-102); Mean Platelet Volume 11.4 FL (9.6-12.0); Monocytes # 0.1 10*3/uL (0.11-0.8); Monocytes % 1.8 % (1.7-12.7); NRBC # 0.03 10*3/uL; Neutrophils # 6.5 10*3/uL (1.4-7.4); Neutrophils % 90.8 % (38.7-73.9); Platelet Count 63 T/CUMM (130-400); Red Blood Count 3.78 MC/CUMM (3.8-5.5); Red Cell Distribution Width 19.2 % (9.3-17.3); White Blood Count 7.1 T/CUMM (4-12)
[2017-11-02 20:00] LABS: Band Neutrophils 3 % (0-10); Lymphocytes 5 % (20-55); Platelet Estimate Decreased; Segmented Neutrophils 90 % (50-85); Total Cells Counted 100
[2017-11-02 20:02] LABS: Albumin 2.4 G/DL (3.4-5.0); Bilirubin,Total 0.7 MG/DL (0.2-1.0); Calcium 8.3 MG/DL (8.5-10.1); Osmolality,Calculated 288.7 MOS/KG (273-304); Potassium 3.8 MMOL/L (3.5-5.1); Total Protein 5.7 G/DL (6.4-8.3)
[2017-11-02 20:12] LABS: Apearance,Urine CLEAR (Clear); Bilirubin,Urine Negative (Negative); Blood, Urine Negative (Negative); Glucose,Urine (UA) 50 mg/dL (Negative); Hyaline Casts,Urine 12 /LPF (0-3); Ketones,Urine Negative (Negative); Nitrite,Urine Negative (Negative); Protein,Urine Negative; RBC,Urine 1 /HPF (0-4); Urine Color Yellow (Yellow); Urine Specific Gravity 1.013 (1.001-1.035); Urine Urobilinogen < 2.0 EU/DL (0.2-1.0); WBC,Urine 1 /HPF (0-6)
[2017-11-02] MEDS ORDERED: ACETAMINOPHEN 325 MG TABLET PO PRN (21:38)
[2017-11-02] MEDS ORDERED: ONDANSETRON 4 MG/2 ML VIAL IV PRN (21:38)
[2017-11-02] MEDS: SODIUM CHLORIDE 0.9% 1,000 ML IV SCH (22:18)
[2017-11-03 04:55] LABS: Basophils % 0.2 % (0.0-0.8); Eosinophils % 0.2 % (0.00-10.9); Hematocrit 31.2 VOL% (35.7-47.0); Hemoglobin 10.6 GM/DL (12.0-16.0); Immature Granulocytes % 5.6 %; Immature Granulocytes Absolute 0.34 #; Lymphocytes # 0.2 10*3/uL (1.4-4.0); Lymphocytes % 3.1 % (21.3-54.2); Mean Corpuscular Hemoglobin 29 PG (27-34); Mean Corpuscular Volume 86.4 FL (87-102); Mean Platelet Volume 12.3 FL (9.6-12.0); Monocytes # 0.1 10*3/uL (0.11-0.8); Monocytes % 1.5 % (1.7-12.7); Neutrophils # 5.5 10*3/uL (1.4-7.4); Neutrophils % 89.4 % (38.7-73.9); Red Blood Count 3.61 MC/CUMM (3.8-5.5); Red Cell Distribution Width 19.5 % (9.3-17.3); White Blood Count 6.1 T/CUMM (4-12)
[2017-11-03 05:01] LABS: Platelet Count 45 T/CUMM (130-400)
[2017-11-03 05:22] LABS: Band Neutrophils 3 % (0-10); Burr Cells Slight; Lymphocytes 2 % (20-55); Platelet Estimate Decreased; Polychromasia Slight; Segmented Neutrophils 95 % (50-85); Total Cells Counted 100
[2017-11-03 05:26] LABS: Albumin 2.4 G/DL (3.4-5.0); Osmolality,Calculated 292.1 MOS/KG (273-304); Potassium 3.6 MMOL/L (3.5-5.1); Total Protein 5.4 G/DL (6.4-8.3)
[2017-11-03] MEDS: SODIUM CHLORIDE 0.9% 1,000 ML IV SCH (09:20)
[2017-11-03] MEDS: PANTOPRAZOLE 40 MG TABLET PO SCH (09:21)
[2017-11-03] MEDS ORDERED: DOCUSATE SODIUM 100 MG CAPSULE PO PRN (13:55)
[2017-11-03] MEDS ORDERED: ISOSORBIDE MONONITRATE 30 MG TABLET PO PRN (13:55)
[2017-11-03] MEDS: glipiZIDE 5 MG TABLET PO SCH ×2 (14:24→20:50)
[2017-11-03] MEDS: CYPROHEPTADINE 4 MG TABLET PO SCH ×2 (14:25→20:49)
[2017-11-03] MEDS ORDERED: WITCH HAZEL PADS 100/JAR TOP PRN (15:03)
[2017-11-03] MEDS ORDERED: DEXTROSE 5% NACL 0.45% 1,000 ML IV SCH (15:30)
[2017-11-03] MEDS: DEXAMETHASONE 4 MG TABLET PO SCH (20:49)
[2017-11-03] MEDS ORDERED: ATORVASTATIN 40 MG TABLET PO SCH (21:00)
[2017-11-03] MEDS ORDERED: GLUCAGON 1 MG VIAL IM PRN (22:03)
[2017-11-03] MEDS ORDERED: DEXTROSE 50% 25 GM/50 ML VIAL IV PRN (22:03)
[2017-11-04] MEDS ORDERED: SODIUM CHLORIDE 0.9% 1,000 ML IV PRN (08:01)
[2017-11-04] MEDS: glipiZIDE 5 MG TABLET PO SCH (10:11)
[2017-11-04] MEDS: PANTOPRAZOLE 40 MG TABLET PO SCH (10:12)
[2017-11-04] MEDS: ALLOPURINOL 100 MG TABLET PO SCH (10:12)
[2017-11-04] MEDS: CYPROHEPTADINE 4 MG TABLET PO SCH ×2 (10:12→21:12)
[2017-11-04] MEDS: INSULIN REGULAR 100 UNIT/ML SUBCUT SCH ×4 (10:20→21:18)
[2017-11-04] MEDS: DEXAMETHASONE 4 MG TABLET PO SCH (21:12)
[2017-11-04] MEDS: ZINC OXIDE PASTE 113 GM TUBE TOP SCH (21:12)
[2017-11-05] MEDS: INSULIN REGULAR 100 UNIT/ML SUBCUT SCH ×4 (09:36→20:39)
[2017-11-05] MEDS: CYPROHEPTADINE 4 MG TABLET PO SCH ×2 (09:38→20:38)
[2017-11-05] MEDS: PANTOPRAZOLE 40 MG TABLET PO SCH (09:38)
[2017-11-05] MEDS: ALLOPURINOL 100 MG TABLET PO SCH (09:38)
[2017-11-05] MEDS: ZINC OXIDE PASTE 113 GM TUBE TOP SCH ×2 (09:38→20:40)
[2017-11-05] MEDS: DEXAMETHASONE 4 MG TABLET PO SCH (20:38)
[2017-11-06 08:19] VITALS: BP 122/66
[2017-11-06] MEDS: CYPROHEPTADINE 4 MG TABLET PO SCH (08:29)
[2017-11-06] MEDS: ALLOPURINOL 100 MG TABLET PO SCH (08:29)
[2017-11-06] MEDS: ZINC OXIDE PASTE 113 GM TUBE TOP SCH (08:29)
[2017-11-06] MEDS: PANTOPRAZOLE 40 MG TABLET PO SCH (08:29)
[2017-11-06] MEDS: INSULIN REGULAR 100 UNIT/ML SUBCUT SCH (08:30)
[2017-11-08] MEDS ORDERED: ceFAZolin 1,000 MG in SYRINGE 1 EACH IV ONE (09:22)
== END 2017-11-06 11:55 | disposition home health service (06) | DRG 683 ==
LOC: EDUNIT# → EDBD → N.ED 17:39 → N.EDINP 17:39 → N.4E 23:57 → SUATTDRO 11-04 15:29
PROVIDERS: ADMIT Internal Medicine; ATTEND Internal Medicine

== ENCOUNTER 2017-11-09 07:26 | Inpatient (IN) ==
[2017-11-09] MEDS ORDERED: PHENYTOIN INJ 1,000 MG in SODIUM CHLORIDE 0.9% 100 ML IV STA (07:36)
[2017-11-09] MEDS ORDERED: levETIRAcetam 500 MG/5 ML VIAL IV ONE (07:40)
[2017-11-09] MEDS ORDERED: DEXAMETHASONE 10 MG/1 ML VIAL IV STA (08:13)
[2017-11-09] MEDS ORDERED: PIPERACILLIN/TAZOBACTAM 3,375 MG in SODIUM CHLORIDE 0.9% 100 ML IV STA (09:11)
[2017-11-09] MEDS ORDERED: ONDANSETRON 4 MG/2 ML VIAL IV PRN (09:15)
[2017-11-09] MEDS ORDERED: ACETAMINOPHEN 325 MG TABLET PO PRN (09:15)
[2017-11-09] MEDS ORDERED: WITCH HAZEL PADS 100/JAR TOP PRN (09:19)
[2017-11-09] MEDS ORDERED: DOCUSATE SODIUM 100 MG CAPSULE PO PRN (09:19)
[2017-11-09] MEDS ORDERED: ISOSORBIDE MONONITRATE 30 MG TABLET PO PRN (09:19)
[2017-11-09] MEDS ORDERED: MAGNESIUM SULF RIDER 2 GM in PREMIX 1 EACH IV STA (09:35)
[2017-11-09] MEDS ORDERED: DEXTROSE 50% 25 GM/50 ML VIAL IV PRN (09:36)
[2017-11-09] MEDS ORDERED: GLUCAGON 1 MG VIAL IM PRN (09:36)
[2017-11-09 10:34] LABS: Barbiturates Screen,Urine Negative (Negative); Benzodiazepines Screen,Urine Negative (Negative); Cannabinoid Screen,Urine Negative (Negative); Opiate Screen,Urine Positive (Negative); Phencyclidine Screen,Urine Negative (Negative)
[2017-11-09 10:49] LABS: Apearance,Urine Slightly Cloudy (Clear); Bilirubin,Urine Negative (Negative); Blood, Urine Moderate mg/dL (Negative); Glucose,Urine (UA) Negative (Negative); Ketones,Urine Negative (Negative); Nitrite,Urine Negative (Negative); Protein,Urine 30 MG/DL; Urine Color Yellow (Yellow); Urine Specific Gravity 1.005 (1.001-1.035); Urine Urobilinogen 0.2 EU/DL (0.2-1.0)
[2017-11-09 10:50] LABS: Bacteria,Urine Few /HPF (Few); Mucus,Urine Slight /LPF (Occasional); RBC,Urine 15-20 /HPF (0-4); Squamous Epithelial Cell,Urine Occasional /HPF (0-10); WBC,Urine 20-25 /HPF (0-6)
[2017-11-09] MEDS ORDERED: MAGNESIUM SULF RIDER 2 GM in PREMIX 1 EACH IV ONE (11:04)
[2017-11-09] MEDS: LACTATED RINGERS 1,000 ML IV SCH (14:19)
[2017-11-09] MEDS: cefTRIAXone 1,000 MG in SYRINGE 1 EACH IV SCH (14:20)
[2017-11-09] MEDS: INSULIN LISPRO 100 UNIT/ML SUBCUT SCH ×3 (14:37→20:52)
[2017-11-09] MEDS: ZINC OXIDE PASTE 113 GM TUBE TOP SCH ×2 (16:38→20:57)
[2017-11-09] MEDS: DEXAMETHASONE 4 MG TABLET PO SCH (20:54)
[2017-11-09] MEDS: ATORVASTATIN 40 MG TABLET PO SCH (20:55)
[2017-11-09] MEDS: APIXABAN 2.5 MG TABLET PO SCH (20:55)
[2017-11-09] MEDS: glipiZIDE 5 MG TABLET PO SCH (20:55)
[2017-11-09] MEDS: CYPROHEPTADINE 4 MG TABLET PO SCH (20:55)
[2017-11-09] MEDS: PANTOPRAZOLE 40 MG TABLET PO SCH (20:55)
[2017-11-10] MEDS: LACTATED RINGERS 1,000 ML IV SCH ×2 (00:24→10:24)
[2017-11-10 04:56] LABS: Basophils % 0.1 % (0.0-0.8); Hematocrit 27.2 VOL% (35.7-47.0); Immature Granulocytes % 5.7 %; Immature Granulocytes Absolute 0.46 #; Lymphocytes # 0.2 10*3/uL (1.4-4.0); Lymphocytes % 2.1 % (21.3-54.2); Mean Corpuscular HGB Conc 33.1 GM/DL (32-36); Mean Corpuscular Hemoglobin 29 PG (27-34); Mean Corpuscular Volume 87.2 FL (87-102); Mean Platelet Volume 11.5 FL (9.6-12.0); Monocytes # 0.2 10*3/uL (0.11-0.8); Monocytes % 2.1 % (1.7-12.7); NRBC # 0.05 10*3/uL; Neutrophils # 7.2 10*3/uL (1.4-7.4); Red Blood Count 3.12 MC/CUMM (3.8-5.5); Red Cell Distribution Width 20.2 % (9.3-17.3)
[2017-11-10 04:58] LABS: Platelet Count 72 T/CUMM (130-400)
[2017-11-10 05:25] LABS: Albumin 2.3 G/DL (3.4-5.0); Bilirubin,Total 0.6 MG/DL (0.2-1.0); Calcium 8.4 MG/DL (8.5-10.1); Osmolality,Calculated 294.4 MOS/KG (273-304); Potassium 3.3 MMOL/L (3.5-5.1); Total Protein 5.5 G/DL (6.4-8.3)
[2017-11-10 05:51] LABS: Band Neutrophils 11 % (0-10); Burr Cells Few; Lymphocytes 5 % (20-55); Platelet Estimate Decreased; Segmented Neutrophils 82 % (50-85); Total Cells Counted 100
[2017-11-10] MEDS: INSULIN LISPRO 100 UNIT/ML SUBCUT SCH ×4 (08:02→21:32)
[2017-11-10] MEDS: glipiZIDE 5 MG TABLET PO SCH ×2 (09:13→21:31)
[2017-11-10] MEDS: ZINC OXIDE PASTE 113 GM TUBE TOP SCH ×2 (09:13→21:08)
[2017-11-10] MEDS: APIXABAN 2.5 MG TABLET PO SCH ×2 (09:13→21:31)
[2017-11-10] MEDS: ALLOPURINOL 100 MG TABLET PO SCH (09:14)
[2017-11-10] MEDS: PANTOPRAZOLE 40 MG TABLET PO SCH ×2 (09:14→21:32)
[2017-11-10] MEDS: CYPROHEPTADINE 4 MG TABLET PO SCH ×2 (09:14→21:32)
[2017-11-10] MEDS ORDERED: MAGNESIUM SULF RIDER 2 GM in PREMIX 1 EACH IV ONE (10:47)
[2017-11-10] MEDS: cefTRIAXone 1,000 MG in SYRINGE 1 EACH IV SCH (11:11)
[2017-11-10] MEDS: POTASSIUM CHLORIDE INJ 40 MEQ in SODIUM CHLORIDE 0.45% 1,000 ML IV SCH (12:05)
[2017-11-10] MEDS: DEXAMETHASONE 4 MG TABLET PO SCH (21:31)
[2017-11-10] MEDS: levETIRAcetam 500 MG TABLET PO SCH (21:31)
[2017-11-10] MEDS: ATORVASTATIN 40 MG TABLET PO SCH (21:32)
[2017-11-11] MEDS: POTASSIUM CHLORIDE INJ 40 MEQ in SODIUM CHLORIDE 0.45% 1,000 ML IV SCH ×2 (02:41→13:25)
[2017-11-11 06:20] LABS: Calcium 8.6 MG/DL (8.5-10.1); Osmolality,Calculated 298.3 MOS/KG (273-304); Potassium 4.3 MMOL/L (3.5-5.1)
[2017-11-11] MEDS: INSULIN LISPRO 100 UNIT/ML SUBCUT SCH ×4 (07:46→21:23)
[2017-11-11] MEDS: ALLOPURINOL 100 MG TABLET PO SCH (10:42)
[2017-11-11] MEDS: glipiZIDE 5 MG TABLET PO SCH ×2 (10:43→21:23)
[2017-11-11] MEDS: PANTOPRAZOLE 40 MG TABLET PO SCH ×2 (10:43→21:24)
[2017-11-11] MEDS: CYPROHEPTADINE 4 MG TABLET PO SCH ×2 (10:43→21:24)
[2017-11-11] MEDS: APIXABAN 2.5 MG TABLET PO SCH ×2 (10:43→21:23)
[2017-11-11] MEDS: levETIRAcetam 500 MG TABLET PO SCH (10:44)
[2017-11-11] MEDS: cefTRIAXone 1,000 MG in SYRINGE 1 EACH IV SCH (11:37)
[2017-11-11] MEDS: ZINC OXIDE PASTE 113 GM TUBE TOP SCH (11:38)
[2017-11-11] MEDS: LORazepam 2 MG/1 ML VIAL IV PRN (18:39)
[2017-11-11] MEDS: DEXAMETHASONE 4 MG TABLET PO SCH (21:23)
[2017-11-11] MEDS: ATORVASTATIN 40 MG TABLET PO SCH (21:24)
[2017-11-12] MEDS: POTASSIUM CHLORIDE INJ 40 MEQ in SODIUM CHLORIDE 0.45% 1,000 ML IV SCH ×2 (02:00→06:30)
[2017-11-12] MEDS: ZINC OXIDE PASTE 113 GM TUBE TOP SCH ×2 (02:34→09:09)
[2017-11-12] MEDS ORDERED: DEXTROSE 5% 1,000 ML IV SCH (09:30)
[2017-11-12] MEDS: INSULIN LISPRO 100 UNIT/ML SUBCUT SCH ×2 (10:08→13:26)
[2017-11-12] MEDS: APIXABAN 2.5 MG TABLET PO SCH (10:09)
[2017-11-12] MEDS: PANTOPRAZOLE 40 MG TABLET PO SCH (10:09)
[2017-11-12] MEDS: ALLOPURINOL 100 MG TABLET PO SCH (10:09)
[2017-11-12] MEDS: glipiZIDE 5 MG TABLET PO SCH (10:09)
[2017-11-12] MEDS: CYPROHEPTADINE 4 MG TABLET PO SCH (10:09)
[2017-11-12] MEDS ORDERED: MEROPENEM 1,000 MG in SYRINGE 1 EACH IV SCH (10:30)
[2017-11-12] MEDS ORDERED: MEROPENEM 1,000 MG in SODIUM CHLORIDE 0.9% 100 ML IV SCH (10:30)
[2017-11-12] MEDS ORDERED: VANCOMYCIN INJ 1,000 MG in SODIUM CHLORIDE 0.9% 250 ML IV SCH (10:30)
[2017-11-12] MEDS: LORazepam 2 MG/1 ML VIAL IV PRN (11:31)
[2017-11-12] MEDS ORDERED: VANCOMYCIN INJ 1,250 MG in SODIUM CHLORIDE 0.9% 250 ML IV SCH (12:00)
[2017-11-12 12:39] VITALS: BP 129/74
== END 2017-11-12 14:56 | disposition hospice, inpatient (51) | DRG 55 ==
LOC: EDUNIT# → EDBD → N.ED 07:26 → N.EDINP 09:15 → SUATTDRO 09:15 → N.ICU 10:49 → N.4E 11-10 13:23
PROVIDERS: ADMIT Family Medicine; ATTEND Internal Medicine Geriatric Medicine